=== PATIENT | female | born 1945 | race Caucasian/White ===

== ENCOUNTER 2018-10-27 06:24 | Day surgery (SDC) | payer BC, MEDICARE ==
[2018-10-27] MEDS ORDERED: Lactated Ringers 1,000 ML IV SCH (07:15)
[2018-10-27] MEDS ORDERED: Midazolam 1 MG/ML 2 ML SDV ONE (07:34)
[2018-10-27] MEDS ORDERED: fentaNYL 100 MCG/2 ML SDV ONE (07:34)
[2018-10-27] MEDS ORDERED: Propofol 200 MG/20 ML SDV ONE ×2 (07:34→07:57)
--- NOTE | 2018-10-27 14:26 | OR ---
DATE OF PROCEDURE: 10/27/2018 PREOPERATIVE DIAGNOSIS: Colon cancer screening. POSTOPERATIVE DIAGNOSES: 1. Diverticulosis. 2. Two small colon polyps--right colon and cecum. PROCEDURE PERFORMED: Colonoscopy to the cecum with biopsy resection of small right colon and cecal polyps. SURGEON: Raymundo Galicia MD. ANESTHESIA: IV anesthesia with monitored anesthesia care. INDICATION: This 72-year-old white female is referred for a colonoscopy for colon cancer screening. She says her last colonoscopic exam was done ten years ago. I counseled her for the procedure including risks and alternatives, and she gave her informed consent to proceed. DESCRIPTION OF PROCEDURE: The patient was placed in the left lateral decubitus position. IV anesthesia was administered by the Anesthesia Service. Time-out was held. A rectal exam was performed which was unremarkable. The flexible video Olympus colonoscope was introduced through her anus, up her rectum, and out her colon all the way to the cecum. En route, we saw multiple left-sided diverticula. There was no bleeding or inflammation associated with any of them. Also en route in the right colon, we saw a small polyp which was removed with a few bites of the biopsy forceps. In the cecum, another small polyp was seen which was removed with the biopsy forceps. The scope was then slowly withdrawn examining the mucosa throughout. No additional mucosal abnormalities were noted. The scope was retroflexed in the rectum with the distal rectum appearing unremarkable. The scope was straightened and removed. She tolerated the procedure well. Raymundo Galicia MD /[id number] [facility]
== END 2018-10-27 09:15 | disposition home or self-care (01) ==
LOC: JP.SDS 06:24
PROVIDERS: ATTEND Surgery
DX: Z12.11 Encounter for screening for malignant neoplasm of colon (principal); D12.2 Benign neoplasm of ascending colon; D12.0 Benign neoplasm of cecum; K57.30 Diverticulosis of large intestine without perforation or abscess without bleeding; K21.9 Gastro-esophageal reflux disease without esophagitis; I12.9 Hypertensive chronic kidney disease with stage 1 through stage 4 chronic kidney disease, or unspecified chronic kidney disease; E11.22 Type 2 diabetes mellitus with diabetic chronic kidney disease; N18.9 Chronic kidney disease, unspecified; E78.5 Hyperlipidemia, unspecified; M81.0 Age-related osteoporosis without current pathological fracture; Z88.0 Allergy status to penicillin
CPT/HCPCS: 45380; J2250; J2704; J3010; J7120; 88305